=== PATIENT | male | born 1950 | race Caucasian/White ===

== ENCOUNTER 2016-12-23 12:00 | Inpatient (IN) ==
[2016-12-23] MEDS ORDERED: Piperacillin/Tazobactam 3.375 GM in D5% in Water (Mini-Bag+) 100 ML IVPB ONE (12:11)
--- NOTE | 2016-12-23 12:11 | Emergency Department Note ---
Disposition Clinical Impression: Diverticulitis Qualifiers: Diverticulitis site: large intestine Diverticulitis bleeding: without bleeding Diverticulitis complication: with perforation and abscess Qualified Code(s): K57.20 - Diverticulitis of large intestine with perforation and abscess without bleeding Disposition: Admitted As Inpatient Condition: Fair Time of Disposition: 12:47 Abdominal Pain HPI - General Chief Complaint: ED General Medical Stated Complaint: Infection in body sent by PCP Time Seen by Provider: 12/23/16 12:04 Source: patient, family Mode of arrival: ambulatory Limitations: no limitations Nursing Notes Reviewed: Yes Vital Signs Reviewed: Yes - History of Present Illness HPI Narrative: 66-year-old who comes in complaining of abdominal pain. The patient was seen by his family doctor did a CT yesterday shows complicated diverticulitis with that abscess. Pt Subjective Complaint: abdominal pain Onset (ago): day(s) Consistency: constant Location: LLQ Pain Severity: mild, moderate Pain Scale: 0 Quality: cramping, aching Radiation: none Migration to: no migration Improves with: nothing Worsens with: nothing Associated symptoms: Reports: denies other symptoms Treatments prior to arrival: none - Related Data Home Medications Medication Instructions Recorded Confirmed Acetaminophen w/Cod 300-30 mg 1 - 2 tab PO DAILY PRN 12/23/16 12/23/16 [Tylenol w/Codeine #3] Alfuzosin HCl [Uroxatral] 10 mg PO DAILY 12/23/16 12/23/16 Aspirin 81 mg PO DAILY 12/23/16 12/23/16 Clopidogrel [Plavix] 75 mg PO DAILY 12/23/16 12/23/16 Dicyclomine [Bentyl] 20 mg PO QID 12/23/16 12/23/16 Lactobacillus Acidophilus 1 mg PO DAILY 12/23/16 12/23/16 [Acidophilus Probiotic] Latanoprost [Xalatan] 1 drop OP HS 12/23/16 12/23/16 Lisinopril [Zestril] 10 mg PO DAILY 12/23/16 12/23/16 Montelukast [Singulair] 10 mg PO DAILY 12/23/16 12/23/16 Multivit-Min/FA/Lycopen/Lutein 1 each PO DAILY 12/23/16 12/23/16 [Centrum Silver Men Tablet] [place]-3/Dha/Epa/Fish Oil [Fish Oil 1 each PO BID 12/23/16 12/23/16 1,000 mg Softgel] Propranolol HCl [Inderal LA] 120 mg PO DAILY 12/23/16 12/23/16 Simvastatin [Zocor] 20 mg PO DAILY 12/23/16 12/23/16 Sucralfate [Carafate] 1 gm PO BID 12/23/16 12/23/16 Allergies Allergy/AdvReac Type Severity Reaction Status Date / Time No Known Allergies Allergy Verified 12/23/16 13:13 All systems ED: reviewed and negative except as stated. Constitutional: Denies: fever, chills, weakness, weight change Eyes: Denies: eye pain, eye discharge, vision change ENT ED: Denies: ear pain, throat pain, dental pain, hearing loss, epistaxis, congestion, dysphagia Cardiovascular: Denies: chest pain, palpitations, dyspnea on exertion, edema, syncope Respiratory: Denies: cough, dyspnea, wheezes, hemoptysis, stridor Gastrointestinal: Reports: abdominal pain. Denies: nausea, vomiting, diarrhea, constipation, hematemesis, melena, hematochezia Genitourinary: Denies: urgency, dysuria, frequency, hematuria Musculoskeletal: Denies: back pain, neck pain, arthralgia, myalgia Integumentary: Denies: rash, abrasion, lesions Neurological: Denies: headache, weakness, numbness, paresthesias, confusion, abnormal gait, vertigo Psychiatric: Denies: anxiety, depression, suicidal thoughts, homicidal thoughts , auditory hallucinations, visual hallucinations Endocrine: Denies: fatigue Hematological/Lymphatic: Denies: easy bleeding, easy bruising Allergic/Immunologic: Denies: facial swelling, urticaria Abdominal Pain PMH - Past Medical History Medical history: Reports: COPD, hypertension, peripheral artery disease, other Psychiatric history: Reports: no psych history - Social History Smoking status: Unknown if ever smoked Alcohol use: Reports: none Drug use: Reports: none Physical Exam - General Limitations: no limitations General appearance: alert, in no apparent distress - Head Head exam: atraumatic, normocephalic, normal inspection - Eye Eye exam: Present: normal appearance, PERRL, EOMI - ENT ENT exam: normal exam, normal oropharynx, mucous membranes moist - Neck Neck exam: Present: normal inspection, full ROM, trachea midline - Chest Chest inspection: Present: normal inspection, symmetric chest wall rise - Respiratory Respiratory exam: Present: normal lung sounds bilaterally - Cardiovascular Cardiovascular exam: Present: regular rate - Abdominal Exam Abdominal exam: Present: tenderness. Absent: guarding Abdominal tenderness: Present: LLQ - Extremities Exam Extremities exam: Present: normal inspection, full ROM. Absent: tenderness, pedal edema - Expanded Lower Extremity Exam Neurovascular/Tendon exam: Absent: motor deficit, sensory deficit, tendon deficit Gait: observed and normal - Back Exam Back exam: Present: normal inspection, full ROM. Absent: tenderness - Neurological Exam Neurological exam: Present: alert, oriented X3 - Psychiatric Psychiatric exam: Present: normal affect, normal mood - Skin Skin exam: Present: warm, dry, intact, normal color Course - Consultations Consultation #1: Discussed with who states the abscess is too small and too centrally located recommends IV antibiotics. Time: 12:41 Consultation #2: Discussed with , admit. Time: 12:59 Vital Signs Temperature 98.3 F 12/23/16 12:01 Pulse Rate 72 12/23/16 12:01 Respiratory Rate 18 12/23/16 12:01 Blood Pressure 170/90 12/23/16 12:01 O2 Sat by Pulse Oximetry 98 12/23/16 12:01 Temperature 98.1 F 12/23/16 20:31 Pulse Rate 59 12/23/16 20:31 Respiratory Rate 18 12/23/16 20:31 Blood Pressure 134/78 12/23/16 20:31 O2 Sat by Pulse Oximetry 99 12/23/16 20:31 Oxygen Delivery Oxygen Delivery Room Air Abdominal Pain - Lab Data Lab results reviewed: Yes I reviewed the patient's lab results. Result diagrams: 12/23/16 12:15 12/23/16 12:15 Lab Results 12/23/16 12/23/16 12/23/16 Range/Units 12:15 12:15 12:15 WBC 10.3 (4.3-11.1) K/mcL RBC 4.99 (4.19-5.50) M/mcL Hgb 15.7 (12.9-16.9) g/dL Hct 47.8 (37.5-50.1) % MCV 95.8 (83.0-100.0) fL MCH 31.5 (28.0-33.3) pg MCHC 32.8 (31.6-35.5) g/dL RDW 13.1 (11.5-14.5) % Plt Count 183 (140-400) K/mcL MPV 9.8 (9.4-12.4) fL Immature Gran % 0.6 (0-4) % Seg Neutrophils % 78.3 % Lymphocytes % 10.7 % Monocytes % 8.0 % Eosinophils % 1.4 % Basophils % 1.0 % Neutrophils # 8.0 (1.6-8.9) K/mcL Lymphocytes # 1.1 (0.6-4.6) K/mcL Monocytes # 0.8 (0.0-1.3) K/mcL Eosinophils # 0.1 (0.0-0.6) K/mcL Basophils # 0.1 (0.0-0.2) K/mcL PT 11.5 (9.4-12.1) Seconds INR 1.1 APTT 31.7 (26.0-36.0) Seconds Sodium 140 (136-145) mEq/L Potassium 4.4 (3.5-4.5) mEq/L Chloride 101 (98-109) mEq/L Carbon Dioxide 30 H (19-29) mEq/L BUN 11 (8-26) mg/dL Creatinine 0.84 (0.72-1.25) mg/dL Est GFR ( Amer) > 60 (> 60) Est GFR (Non-Af Amer) > 60 (> 60) BUN/Creatinine Ratio 13 (6-26) Glucose 123 H (70-99) mg/dL Calculated Osmolality 291 (280-300) Calcium 9.4 (8.6-10.8) mg/dL - Radiology Data Radiology results reviewed: Yes I reviewed the patient's radiology results. Reviewed CT scan from yesterday which showed diverticulitis with a small abscess.
[2016-12-23 12:27] LABS: Basophils # 0.1 K/mcL (0.0-0.2); Eosinophils # 0.1 K/mcL (0.0-0.6); Eosinophils % 1.4 %; Hematocrit 47.8 % (37.5-50.1); Hemoglobin 15.7 g/dL (12.9-16.9); Immature Granulocytes % 0.6 % (0-4); Lymphocytes # 1.1 K/mcL (0.6-4.6); Lymphocytes % 10.7 %; Mean Corpuscular HGB Conc 32.8 g/dL (31.6-35.5); Mean Corpuscular Hemoglobin 31.5 pg (28.0-33.3); Mean Corpuscular Volume 95.8 fL (83.0-100.0); Mean Platelet Volume 9.8 fL (9.4-12.4); Monocytes # 0.8 K/mcL (0.0-1.3); Platelet Count 183 K/mcL (140-400); Red Blood Count 4.99 M/mcL (4.19-5.50); Red Cell Distribution Width 13.1 % (11.5-14.5); Segmented Neutrophils % 78.3 %
[2016-12-23 12:30] LABS: INR 1.1; Prothrombin Time 11.5 Seconds (9.4-12.1)
[2016-12-23 12:33] LABS: Activated Partial Thrombo Time 31.7 Seconds (26.0-36.0)
[2016-12-23 12:38] LABS: BUN/Creatinine Ratio 13 (6-26); Blood Urea Nitrogen 11 mg/dL (8-26); Calcium 9.4 mg/dL (8.6-10.8); Carbon Dioxide 30 mEq/L (19-29); Chloride 101 mEq/L (98-109); Glucose 123 mg/dL (70-99); Osmolality,Calculated 291 (280-300); Potassium 4.4 mEq/L (3.5-4.5); Sodium 140 mEq/L (136-145); eGFR For African Americans > 60 (> 60); eGFR For Non-African Americans > 60 (> 60)
[2016-12-23] MEDS ORDERED: Acetaminophen 325 MG TABLET PO PRN (13:50)
[2016-12-23] MEDS ORDERED: Naloxone 0.4 MG/ML INJ IVP PRN (13:50)
--- NOTE | 2016-12-23 14:15 | Internal Med History&Physical ---
Date of Encounter: 12/23/16 Time of Encounter: 13:30 Assessment and Plan (1) Diverticulitis Current visit: Yes Status: Acute Patient with acute diverticulitis with perforation and small abscess. Abscess not amenable to drainage per IR. We will place patient in the hospital and treat with IV antibiotics. Follow response. If he responds well to IV antibiotics, he may be transitioned to oral antibiotics and discharged home when medically stable. Otherwise he will need further workup including repeat CT scan. IV hydration. Monitor vital signs closely. Qualifiers: Diverticulitis site: large intestine Diverticulitis bleeding: without bleeding Diverticulitis complication: with perforation and abscess Qualified Code(s): K57.20 - Diverticulitis of large intestine with perforation and abscess without bleeding (2) Essential hypertension Current visit: Yes Status: Chronic Monitor blood pressure. Resume home medications. (3) Peripheral vascular disease Current visit: No Status: Chronic Continue aspirin and Plavix. Internal Medicine - H&P: HPI Chief complaint: Abdominal pain and cramping Admitted From: Emergency Dept Plans for Post Hospital Care: Home History of present illness: Mr. Catherine is a 66 year old male patient with a history of peripheral artery disease with stents, essential hypertension who presented to the ER with complaints of abdominal pain. He had gone to see his primary care provider yesterday for a routine visit and had described cramping abdominal pain prior to bowel movements every morning that has been ongoing for about 2 months now along with associated weight loss. As such a CT scan was ordered which the patient underwent today. The CT scan showed diverticulitis and diverticular abscess. As such he was asked to come to the ER. Patient denies any nausea or vomiting. No fever chills or night sweats. No hematemesis or melena. He does have a history of gastroesophageal reflux disease. Past Med Surg Social Fam HX - Past Medical History Attestation: Yes The following information was validated with the patient. Source: patient Medical history: COPD, hypertension, peripheral artery disease, other Psychiatric history: no psych history - Social History Smoking Status: Unknown if ever smoked Smokeless Tobacco Status: No Alcohol use: none Drug use: none - Additional Family History Additional family history: Reviewed and found to be noncontributory at this time Internal Medicine - H&P: Meds Acetaminophen w/Cod 300-30 mg [Tylenol w/Codeine #3] 1 - 2 tab PO DAILY PRN 05/ 12/17 [History] Alfuzosin HCl [Uroxatral] 10 mg PO DAILY 12/23/16 [History] Aspirin 81 mg PO DAILY 12/23/16 [History] Clopidogrel [Plavix] 75 mg PO DAILY 12/23/16 [History] Dicyclomine [Bentyl] 20 mg PO QID 12/23/16 [History] Lactobacillus Acidophilus [Acidophilus Probiotic] 1 mg PO DAILY 12/23/16 [ History] Latanoprost [Xalatan] 1 drop OP HS 12/23/16 [History] Lisinopril [Zestril] 10 mg PO DAILY 12/23/16 [History] Montelukast [Singulair] 10 mg PO DAILY 12/23/16 [History] Multivit-Min/FA/Lycopen/Lutein [Centrum Silver Men Tablet] 1 each PO DAILY 12/23 [History] [place]-3/Dha/Epa/Fish Oil [Fish Oil 1,000 mg Softgel] 1 each PO BID 12/23/16 [ History] Propranolol HCl [Inderal LA] 120 mg PO DAILY 12/23/16 [History] Simvastatin [Zocor] 20 mg PO DAILY 12/23/16 [History] Sucralfate [Carafate] 1 gm PO BID 12/23/16 [History] Allergies No Known Allergies Allergy (Verified 12/23/16 13:13) All Systems PM: A 10-system review of systems was performed and is negative for pertinent findings except as documented above in the HPI. - Constitutional Constitutional: no chills, no fever(s), no night sweats - EENT Eyes: no change in vision, no discharge, no pain, no photophobia Ears: no ear discharge, no ear pain, no tinnitus Nose, mouth and throat: no dysphagia, no nasal discharge, no neck pain, no sore throat - Cardiovascular Cardiovascular ROS IM: no chest pain, no diaphoresis, no dyspnea, no lightheadedness, no palpitations, no syncope - Respiratory Respiratory: no cough, no dyspnea, no wheezing, no excessive phlegm production - Gastrointestinal Gastrointestinal: abdominal pain, cramping, no diarrhea, no hematemesis, no hematochezia, no melena, no nausea, no vomiting - Musculoskeletal Musculoskeletal ROS IM: no numbness, no tingling - Integumentary Integumentary IM: no rash, no unusual bruising - Neurological Neurological ROS: no confusion, no convulsions, no focal weakness, no numbness, no tingling, no tremor(s) - Hematologic/Lymphatic Hematologic/Lymphatic: no easy bruising - Constitutional Vitals: Temp Pulse Resp BP Pulse Ox 98.3 F 72 18 126/83 98 12/23/16 12:01 12/23/16 12:01 12/23/16 13:39 12/23/16 13:39 12/23/16 12:01 General appearance: Present: cooperative, mild distress, A&O X 3, answers questions appropriately - Eye Eye exam: Present: EOMI, PERRL, conjuntiva pink, sclera anicteric - Neck Neck exam general surgery: Present: supple, trachea midline. Absent: lymphadenopathy - GI/Abdominal GI/Abdominal exam: Present: normal bowel sounds, soft, tenderness (Left lower quadrant tenderness), no peritoneal signs. Absent: distended - Extremities Exam Extremities exam: Present: warm, radial pulses palpable and symetrical. Absent : calf tenderness, cyanotic, pedal edema - Neurological Exam Neurological exam: Present: alert, oriented X3, no focal deficits. Absent: facial droop, speech deficit - Skin Skin exam: Present: dry, intact Internal Med - H&P Results - Labs CBC & Chem 7: 12/23/16 12:15 12/23/16 12:15 - Impressions CT of the abdomen and pelvis shows sigmoid diverticulitis with abscess measuring 4.6 cm x 2.2 cm - Attending Attestation This document has been at least partially created by [email or web address] recognition technology by Dr. Espinoza. Errors in grammar, wording or other phrases may exist. If errors are found after the documentation is signed, they will be addressed individually in the addendum section of this document when appropriate.
[2016-12-23] MEDS: 0.9 % Sodium Chloride 1,000 ML IVC SCH (17:02)
[2016-12-23] MEDS: *HR* Heparin 5,000 UNIT/ML VIAL SQ SCH (17:02)
[2016-12-23] MEDS ORDERED: Ondansetron 4 MG/2 ML VIAL IVP PRN (17:09)
[2016-12-23] MEDS: Sucralfate 1 GM TABLET PO SCH (20:08)
[2016-12-23] MEDS: Piperacillin/Tazobactam 3.375 GM in D5% in Water (Mini-Bag+) 100 ML IVPB SCH (20:09)
[2016-12-24] MEDS: 0.9 % Sodium Chloride 1,000 ML IVC SCH ×3 (03:15→21:01)
[2016-12-24] MEDS: Piperacillin/Tazobactam 3.375 GM in D5% in Water (Mini-Bag+) 100 ML IVPB SCH ×3 (03:57→20:58)
[2016-12-24 05:16] LABS: Basophils # 0.1 K/mcL (0.0-0.2); Basophils % 0.8 %; Eosinophils # 0.1 K/mcL (0.0-0.6); Hematocrit 39.4 % (37.5-50.1); Immature Granulocytes % 0.5 % (0-4); Lymphocytes # 1.4 K/mcL (0.6-4.6); Lymphocytes % 22.4 %; Mean Corpuscular HGB Conc 33.5 g/dL (31.6-35.5); Mean Corpuscular Hemoglobin 31.9 pg (28.0-33.3); Mean Corpuscular Volume 95.2 fL (83.0-100.0); Monocytes # 0.7 K/mcL (0.0-1.3); Platelet Count 137 K/mcL (140-400); Red Blood Count 4.14 M/mcL (4.19-5.50); Red Cell Distribution Width 13.3 % (11.5-14.5); Segmented Neutrophils % 63.3 %
[2016-12-24 05:17] LABS: Hemoglobin 13.2 g/dL (12.9-16.9)
[2016-12-24 05:25] LABS: BUN/Creatinine Ratio 14 (6-26); Blood Urea Nitrogen 11 mg/dL (8-26); Calcium 8.6 mg/dL (8.6-10.8); Carbon Dioxide 25 mEq/L (19-29); Chloride 106 mEq/L (98-109); Glucose 111 mg/dL (70-99); Osmolality,Calculated 288 (280-300); Potassium 3.4 mEq/L (3.5-4.5); Sodium 139 mEq/L (136-145); eGFR For African Americans > 60 (> 60); eGFR For Non-African Americans > 60 (> 60)
[2016-12-24] MEDS: *HR* Heparin 5,000 UNIT/ML VIAL SQ SCH ×2 (06:00→16:38)
[2016-12-24] MEDS ORDERED: Multivit/Ca/Min/Fe/FA 1 TAB TABLET PO SCH (09:00)
[2016-12-24] MEDS: Aspirin 81 MG TAB.CHEW PO SCH (09:50)
[2016-12-24] MEDS: Propranolol LA (24 HR) 60 MG CAP.SA.24H PO SCH (09:50)
[2016-12-24] MEDS: Sucralfate 1 GM TABLET PO SCH ×2 (09:50→20:58)
[2016-12-24] MEDS: Lactobacillus 1 EACH CAP.SPRINK PO SCH (09:50)
--- NOTE | 2016-12-24 17:21 | Internal Med Progress Note ---
Date of Encounter: 12/24/16 Time of Encounter: 10:50 - Assessment and plan (1) Diverticulitis Current Visit: Yes Status: Acute Assessment and plan: She was admitted through the emergency department yesterday for acute diverticulitis with perforation and small abscess. Patient is being treated with IV antibiotics. He does report some very mild 1/10 left lower quadrant tenderness. He has not had a bowel movement since he arrived, however he has had loose stool yesterday prior to admission. His abdomen is soft, nontender, nondistended, bowel sounds present. His labs and vital signs are within normal limits. Continue IV antibiotics overnight. Most likely discharge in the morning. Qualifiers: Diverticulitis site: large intestine Diverticulitis bleeding: without bleeding Diverticulitis complication: with perforation and abscess Qualified Code(s): K57.20 - Diverticulitis of large intestine with perforation and abscess without bleeding (2) Essential hypertension Current Visit: Yes Status: Chronic Assessment and plan: Vital signs are stable. Continue home medications. (3) Peripheral vascular disease Current Visit: No Status: Chronic Assessment and plan: Chronic. Continue aspirin and Plavix. - Time Spent With Patient less than 15 minutes - Subjective Interval history: Patient was seen and assessed this morning at about 1050. He reports a 30 pound weight loss in about 9 months. This is but initially prompted his visit to his primary care physician and the ordering of the CAT scan. He reports mild about 1/10 left lower quadrant tenderness. He states he has not had a bowel movement since he has been here, he did have loose stool yesterday prior to arrival. His abdomen is soft, nontender, bowel sounds present patient states that he had started Carafate recently which he vomited his first dose. He said that that is the only nausea or vomiting he has had at this time. He is denying pain. - Constitutional Vitals: Temp Pulse Resp BP Pulse Ox 98.3 F 56 18 148/77 98 12/24/16 15:54 12/24/16 15:54 12/24/16 15:54 12/24/16 15:54 12/24/16 15:54 General appearance: Present: cooperative, mild distress, A&O X 3, answers questions appropriately - Head Head exam: Present: normal inspection - Eye Eye exam: Present: normal appearance, conjuntiva pink - ENT ENT exam: Present: mucous membranes moist, normal exam, normal external ear exam - Respiratory Respiratory exam: Present: CTAB. Absent: rales, respiratory distress, rhonchi, wheezes - Cardiovascular Cardiovascular exam: Present: RRR, +S1, +S2. Absent: diastolic murmur, systolic murmur - GI/Abdominal GI/Abdominal exam: Present: normal bowel sounds, soft. Absent: distended, firm , hepatomegaly, pulsatile mass, tenderness - Extremities Exam Extremities exam: Present: normal capillary refill, normal inspection, warm, radial pulses palpable and symetrical. Absent: pedal edema, tenderness - Neurological Exam Neurological exam: Present: alert, normal gait, oriented X3, no focal deficits, strengths equal and symetr throughout. Absent: facial droop, speech deficit Internal Medicine: Result - Labs CBC & Chem 7: 12/24/16 04:46 12/24/16 04:46 Labs: Short CBC 12/24/16 Range/Units 04:46 WBC 6.4 (4.3-11.1) K/mcL Hgb 13.2 D (12.9-16.9) g/dL Hct 39.4 (37.5-50.1) % Plt Count 137 L (140-400) K/mcL Neutrophils # 4.0 (1.6-8.9) K/mcL BMP 12/24/16 04:46 Sodium 139 Potassium 3.4 L D Chloride 106 Carbon Dioxide 25 BUN 11 Creatinine 0.80 Glucose 111 H Calcium 8.6 - ABG Interpretation ABG results: PT/INR, D-dimer PT 11.5 Seconds (9.4-12.1) 12/23/16 12:15 Consult Discharge Plan - Plan Referrals: Viviana Lawrence [Primary Care Provider] -
[2016-12-25] MEDS: Piperacillin/Tazobactam 3.375 GM in D5% in Water (Mini-Bag+) 100 ML IVPB SCH (04:25)
[2016-12-25 05:18] LABS: Basophils # 0.1 K/mcL (0.0-0.2); Basophils % 0.7 %; Eosinophils # 0.1 K/mcL (0.0-0.6); Eosinophils % 1.8 %; Hematocrit 40.3 % (37.5-50.1); Hemoglobin 12.9 g/dL (12.9-16.9); Immature Granulocytes % 0.4 % (0-4); Lymphocytes # 1.4 K/mcL (0.6-4.6); Lymphocytes % 21.6 %; Mean Corpuscular Hemoglobin 30.9 pg (28.0-33.3); Mean Corpuscular Volume 96.4 fL (83.0-100.0); Mean Platelet Volume 9.8 fL (9.4-12.4); Monocytes # 0.8 K/mcL (0.0-1.3); Monocytes % 11.2 %; Neutrophils # 4.3 K/mcL (1.6-8.9); Platelet Count 142 K/mcL (140-400); Red Blood Count 4.18 M/mcL (4.19-5.50); Segmented Neutrophils % 64.3 %
[2016-12-25 05:30] LABS: BUN/Creatinine Ratio 12 (6-26); Blood Urea Nitrogen 9 mg/dL (8-26); Calcium 8.5 mg/dL (8.6-10.8); Carbon Dioxide 23 mEq/L (19-29); Chloride 109 mEq/L (98-109); Glucose 97 mg/dL (70-99); Osmolality,Calculated 289 (280-300); Potassium 3.4 mEq/L (3.5-4.5); Sodium 140 mEq/L (136-145); eGFR For African Americans > 60 (> 60); eGFR For Non-African Americans > 60 (> 60)
[2016-12-25] MEDS: *HR* Heparin 5,000 UNIT/ML VIAL SQ SCH (06:05)
[2016-12-25] MEDS: Aspirin 81 MG TAB.CHEW PO SCH (07:56)
[2016-12-25] MEDS: Lactobacillus 1 EACH CAP.SPRINK PO SCH (07:56)
[2016-12-25] MEDS: Sucralfate 1 GM TABLET PO SCH (07:57)
[2016-12-25] MEDS: Propranolol LA (24 HR) 60 MG CAP.SA.24H PO SCH (07:57)
[2016-12-25 10:39] VITALS: BP 163/72
--- NOTE | 2016-12-25 11:25 | Discharge Summary ---
Date of Encounter: 12/25/16 Time of Encounter: 11:10 - Discharge Diagnosis (1) Diverticulitis Priority: Primary Status: Acute Comments: Patient was admitted with acute diverticulitis with perforation and small abscess. Abscess was not amenable to drainage per IR. He was treated in the hospital with IV antibiotics and will be discharged home with Cipro and Flagyl. He will also follow-up with surgery outpatient. He is not having any pain. Abdomen is soft and nontender. He denies cramping nausea vomiting or diarrhea. His labs are stable, as are his vital signs. Qualifiers: Diverticulitis site: large intestine Diverticulitis bleeding: without bleeding Diverticulitis complication: with perforation and abscess Qualified Code(s): K57.20 - Diverticulitis of large intestine with perforation and abscess without bleeding (2) Essential hypertension Priority: Secondary Status: Chronic Comments: Chronic. Systolic blood pressure has been in the 150s and 60s, diastolic remained consistently in the 70s primarily. Systolic blood pressure is not at goal. Follow-up with primary care for potential medication adjustment. (3) Peripheral vascular disease Priority: Secondary Status: Chronic Comments: Chronic. Continue aspirin and Plavix. - Discharge Medications Prescriptions: Ciprofloxacin [Cipro] 500 mg PO BID #14 tablet metroNIDAZOLE [Flagyl] 500 mg PO TID #21 tablet Home Medications: Acetaminophen w/Cod 300-30 mg [Tylenol w/Codeine #3] 1 - 2 tab PO DAILY PRN 07/30 [History] Alfuzosin HCl [Uroxatral] 10 mg PO DAILY 12/23/16 [History] Aspirin 81 mg PO DAILY 12/23/16 [History] Clopidogrel [Plavix] 75 mg PO DAILY 12/23/16 [History] Dicyclomine [Bentyl] 20 mg PO QID 12/23/16 [History] Lactobacillus Acidophilus [Acidophilus Probiotic] 1 mg PO DAILY 12/23/16 [ History] Latanoprost [Xalatan] 1 drop OP HS 12/23/16 [History] Lisinopril [Zestril] 10 mg PO DAILY 12/23/16 [History] Montelukast [Singulair] 10 mg PO DAILY 12/23/16 [History] Multivit-Min/FA/Lycopen/Lutein [Centrum Silver Men Tablet] 1 each PO DAILY 12/23 [History] [place]-3/Dha/Epa/Fish Oil [Fish Oil 1,000 mg Softgel] 1 each PO BID 12/23/16 [ History] Propranolol HCl [Inderal LA] 120 mg PO DAILY 12/23/16 [History] Simvastatin [Zocor] 20 mg PO DAILY 12/23/16 [History] Sucralfate [Carafate] 1 gm PO BID 12/23/16 [History] Ciprofloxacin [Cipro] 500 mg PO BID #14 tablet 12/25/16 [Rx] metroNIDAZOLE [Flagyl] 500 mg PO TID #21 tablet 12/25/16 [Rx] Allergies/Adverse Reactions: Allergies No Known Allergies Allergy (Verified 12/23/16 13:13) Date of admission: 12/24/16 17:26 Primary care physician: Viviana Lawrence Discharging clinician: Yael Pulido Anticipated date of discharge: 12/25/16 - Patient Status Disposition: Home, Self-Care Condition: Good Functional capacity at discharge: independent ambulation Overall status at discharge: patient is back to baseline - Discharge Instructions Follow Up With: Viviana Lawrence [Primary Care Provider] - Additional Instructions: I have given you to antibiotics, please take them as written until they are gone. Please follow-up with her primary care physician within the next week. Please follow-up with surgery as scheduled Continue your normal home medications. Discuss your blood pressure with your provider. Your systolic blood pressure is mildly elevated, continue to monitor. Return to the emergency room immediately for any problems or concerns, increasing pain, fever, chills, nausea or vomiting, or any for new or concerning symptoms - Diet and Activity Activity: resume usual activities as tolerated Diet: advance to your usual diet Interval History: Patient was admitted through the emergency room by primary care physician for diverticulitis with bowel perforation and abscess. Patient states that he had a significant weight loss over an extended period of time. He said he had occasional left lower quadrant cramping intermittently. Primary care ordered a CT that showed abnormal thickening and inflammatory change involving the sigmoid , compatible with acute diverticulitis near the left SI joint there is a focal, pericolonic, extraluminal collection of fluid and gas. This could represent a small abscess from perforated aided diverticulitis. Patient was admitted in treated with IV antibiotics. He remained afebrile and vitals within normal limits. He had no leukocytosis. His abdomen remained slightly distended, which was most likely normal for his age and lifestyle. Abdomen was soft and nontender with bowel sounds present. He denied any nausea or vomiting. He denies diarrhea. He will be discharged on Flagyl and Cipro by mouth, seven-day course. He will follow-up with his primary care physician in the next week. Our community health advisor is also making an appointment for follow-up with surgery on a nonemergent outpatient basis. The patient with chronic hypertension, systolic is mildly elevated throughout visit. Should be followed up with primary care. Patient is eating and drinking and tolerating food and fluid without any difficulty. Patient is stable and appropriate for discharge Hospital course: Mr. Catherine is a 66 year old male - Time Spent with Patient Total time spent providing and/or coordinating discharge services: Less than 30 minutes - Constitutional Vitals: Temp Pulse Resp BP Pulse Ox 98.1 F 53 18 163/72 98 12/25/16 10:35 12/25/16 10:35 12/25/16 10:35 12/25/16 10:35 12/25/16 10:35 General appearance: Present: cooperative, mild distress, A&O X 3, answers questions appropriately - Head Head exam: Present: normal inspection - Eye Eye exam: Present: normal appearance, conjuntiva pink - ENT ENT exam: Present: mucous membranes moist, normal exam, normal external ear exam - Neck Neck exam general surgery: Present: normal inspection. Absent: lymphadenopathy , tenderness - Respiratory Respiratory exam: Present: CTAB. Absent: rales, respiratory distress, rhonchi, wheezes - Cardiovascular Cardiovascular exam: Present: RRR, +S1, +S2. Absent: diastolic murmur, systolic murmur - Expanded Cardiovascular Exam Peripheral pulses: 2+: Dorsalis Pedis (L) PM, Dorsalis Pedis (R) PM - GI/Abdominal GI/Abdominal exam: Present: normal bowel sounds. Absent: distended, hepatomegaly, rigid, tenderness - Extremities Exam Extremities exam: Present: normal inspection, warm, radial pulses palpable and symetrical. Absent: pedal edema, tenderness - Neurological Exam Neurological exam: Present: alert, oriented X3, no focal deficits, strengths equal and symetr throughout. Absent: facial droop, speech deficit
== END 2016-12-25 13:00 | disposition home or self-care (01) | DRG 392 ==
LOC: 3ANU 12:00 → EMEROO 12:00 → SUATTDRO 13:26 → 3ANU 14:51
PROVIDERS: ADMIT Internal Medicine; ATTEND Internal Medicine